=== PATIENT | male | born 1970 | race Caucasian/White ===

== ENCOUNTER 2017-05-19 18:20 | Inpatient (IN) | payer BC ==
--- NOTE | 2017-05-19 19:03 | ED ---
Extremity Problem HPI <Eldon Lunsford - Last Filed: 05/19/17 22:12> - General Source: patient Mode of arrival: ambulatory Limitations: no limitations <Danielle Moffett - Last Filed: 05/20/17 03:37> - General Chief complaint: Extremity Problem,Nontraumatic Stated complaint: Swollen leg Time Seen by Provider: 05/19/17 18:41 - History of Present Illness Initial comments: 46 year-old male patient presents to the emergency department today for complaints of right knee pain, redness, and swelling. Patient states that for the last month he has had bursitis to the right knee. States he has been seeking treatment with senior regulatory affairs specialist for this. States he did undergo MRI today that was scheduled a couple of weeks ago. Patient states that yesterday evening he felt a pop in his knee and felt a warm sensation run down his leg. Patient states since that time he has been having swelling and redness down into the lower leg and up into his thigh. Patient states he did feel chilled yesterday however denies any documented fevers. Denies any nausea or vomiting. Denies any numbness or tingling to the right lower extremity. Patient denies any recent rash, shortness breath, chest pain, abdominal pain, diarrhea, constipation, back pain, numbness, tingling, dizziness, weakness, hematuria, dysuria, urinary urgency, urinary frequency, headache, visual changes , or any other complaints. (Danielle Moffett) - Related Data Home Medications Medication Instructions Recorded Confirmed No Known Home Medications [No 10/06/15 05/19/17 Known Home Medications] Allergies Allergy/AdvReac Type Severity Reaction Status Date / Time No Known Allergies Allergy Verified 05/19/17 18:59 Review of Systems ROS Other: All systems not noted in ROS Statement are negative. <Eldon Lunsford - Last Filed: 05/19/17 22:12> ROS Other: All systems not noted in ROS Statement are negative. <Danielle Moffett - Last Filed: 05/20/17 03:37> ROS Statement: Those systems with pertinent positive or pertinent negative responses have been documented in the HPI. Past Medical History Past Medical History: No Reported History History of Any Multi-Drug Resistant Organisms: None Reported Past Surgical History: No Surgical Hx Reported Past Psychological History: No Psychological Hx Reported Smoking Status: Current every day smoker Past Alcohol Use History: None Reported Past Drug Use History: None Reported <Danielle Moffett - Last Filed: 05/20/17 03:37> General Exam Limitations: no limitations General appearance: alert, in no apparent distress, other (This is a well- developed, well-nourished adult male patient in no acute distress. Vital signs upon presentation are temperature 98.6F, pulse 108, respirations 20, blood pressure 140/76, pulse ox 98% on room air.) Eye exam: Present: normal appearance, PERRL, EOMI. Absent: scleral icterus, conjunctival injection, periorbital swelling ENT exam: Present: normal exam, normal oropharynx, mucous membranes moist Respiratory exam: Present: normal lung sounds bilaterally. Absent: respiratory distress, wheezes, rales, rhonchi, stridor Cardiovascular Exam: Present: normal rhythm, tachycardia, normal heart sounds. Absent: systolic murmur, diastolic murmur, rubs, gallop, clicks Extremities exam: Present: full ROM, tenderness (Tenderness over the right anterior knee), normal capillary refill, other (Swelling, tenderness, and erythema noted over the right anterior knee. Patient does have erythema extending down the right lower leg circumferentially to approximately mid to lower calf. Patient also has erythema extending up on the right lateral thigh. Skin is otherwise pink, warm, and dry. Cap refills less than 3 seconds. Pedal and posttibial pulses are 2+ and equal bilaterally.). Absent: normal inspection, pedal edema, joint swelling, calf tenderness Neurological exam: Present: alert, oriented X3, CN II-XII intact Psychiatric exam: Present: normal affect, normal mood Skin exam: Present: warm, dry, intact, normal color. Absent: rash <Danielle Moffett - Last Filed: 05/20/17 03:37> Course <Eldon Lunsford - Last Filed: 05/19/17 22:12> <Danielle Moffett - Last Filed: 05/20/17 03:37> Vital Signs 05/19/17 05/19/17 18:29 21:00 Temperature 98.6 F 100.4 F H Pulse Rate 108 H 114 H Respiratory 20 18 Rate Blood Pressure 140/76 142/63 O2 Sat by Pulse 98 96 Oximetry - Reevaluation(s) Reevaluation #1: 05/19/17 21:45 Sepsis diagnoses: 2145 (Danielle Moffett) Medical Decision Making - Lab Data Result diagrams: 05/19/17 18:50 05/19/17 18:50 <Eldon Lunsford - Last Filed: 05/19/17 22:12> - Lab Data Result diagrams: 05/19/17 18:50 05/19/17 18:50 - Radiology Data Radiology results: report reviewed, image reviewed <Danielle Moffett - Last Filed: 05/20/17 03:37> - Medical Decision Making Patient was reevaluated by myself, Dr. Lunsford. Patient does have evidence of cellulitis of the right leg from above the knee to above the ankle. There is warmth and mild tenderness. Patient has what but cell count elevation as well as meats Sirs criteria. Patient meet sepsis criteria. Patient has been started on IV antibiotics. Blood culture and lactic acid has been ordered. Patient was updated on results and plan. Case was discussed in detail with Dr. Stratton, who will admit his patient with consult with Dr. Bruce and infectious disease Dr. Snowden. (Eldon Lunsford) - Lab Data Lab Results 05/19/17 05/19/17 05/19/17 Range/Units 18:50 18:50 19:15 WBC 18.3 H (3.8-10.6) k/uL RBC 5.32 (4.30-5.90) m/uL Hgb 16.1 (13.0-17.5) gm/dL Hct 47.3 (39.0-53.0) % MCV 88.9 (80.0-100.0) fL MCH 30.3 (25.0-35.0) pg MCHC 34.1 (31.0-37.0) g/dL RDW 13.1 (11.5-15.5) % Plt Count 229 (150-450) k/uL Neutrophils % 75 % Lymphocytes % 14 % Monocytes % 7 % Eosinophils % 2 % Basophils % 0 % Neutrophils # 13.8 H (1.3-7.7) k/uL Lymphocytes # 2.6 (1.0-4.8) k/uL Monocytes # 1.2 H (0-1.0) k/uL Eosinophils # 0.4 (0-0.7) k/uL Basophils # 0.1 (0-0.2) k/uL Sodium 141 (137-145) mmol/L Potassium 4.6 (3.5-5.1) mmol/L Chloride 104 (98-107) mmol/L Carbon Dioxide 22 (22-30) mmol/L Anion Gap 15 mmol/L BUN 14 (9-20) mg/dL Creatinine 0.80 (0.66-1.25) mg/dL Est GFR (CKD-EPI)AfAm >90 (>60 ml/min/1.73 sqM) Est GFR (CKD-EPI)NonAf >90 (>60 ml/min/1.73 sqM) Glucose 119 H (74-99) mg/dL Plasma Lactic Acid Jimenez 1.3 (0.7-2.0) mmol/L Calcium 9.4 (8.4-10.2) mg/dL Total Bilirubin 0.6 (0.2-1.3) mg/dL AST 31 (17-59) U/L ALT 37 (21-72) U/L Alkaline Phosphatase 72 (38-126) U/L Total Protein 7.4 (6.3-8.2) g/dL Albumin 4.3 (3.5-5.0) g/dL - Radiology Data 3 views of the right knee were obtained. No fracture or dislocation evident. There is no sign of joint effusion. Joint spaces are fairly normal. There is soft tissue swelling inferior to the patella. Impression by Dr. Maradiaga shows soft tissue swelling. Normal joint spaces. No fracture. MRI of the right knee was obtained. Report was reviewed in its entirety. Impression by Dr. Maradiaga shows no evidence of meniscal or ligamentous tear. Mild knee joint effusion could relate to synovitis. Extensive subcutaneous edema around the knee with elongated fluid collection in the subcutaneous tissues anteriorly as above. This could relate to cellulitis and abscess. Clinical correlation is recommended. I will also consider chronic hematoma and seroma. (Danielle Moffett) Disposition <Eldon Lunsford - Last Filed: 05/19/17 22:12> Decision to Admit Reason: Admit from EC Decision Date: 05/19/17 Decision Time: 22:30 <Danielle Moffett - Last Filed: 05/20/17 03:37> Clinical Impression: Cellulitis of right knee, Effusion, right knee, Sepsis Disposition: ADMITTED IP TO THIS HOSP Condition: Good
[2017-05-19 19:04] LABS: Basophils # (A) 0.1 k/uL (0-0.2); Basophils % (A) 0 %; Eosinophils # (A) 0.4 k/uL (0-0.7); Eosinophils % (A) 2 %; HCT 47.3 % (39.0-53.0); HGB 16.1 gm/dL (13.0-17.5); Lymphocytes # (A) 2.6 k/uL (1.0-4.8); Lymphocytes % (A) 14 %; MCH 30.3 pg (25.0-35.0); MCHC 34.1 g/dL (31.0-37.0); MCV 88.9 fL (80.0-100.0); Mean Platelet Volume 8.4; Monocytes # (A) 1.2 k/uL (0-1.0); Monocytes % (A) 7 %; Neutrophils # (A) 13.8 k/uL (1.3-7.7); Neutrophils % (A) 75 %; Platelet Count 229 k/uL (150-450); RBC 5.32 m/uL (4.30-5.90); RDW 13.1 % (11.5-15.5); WBC 18.3 k/uL (3.8-10.6)
[2017-05-19 19:24] LABS: ALT 37 U/L (21-72); AST 31 U/L (17-59); Albumin 4.3 g/dL (3.5-5.0); Alkaline Phosphatase 72 U/L (38-126); Anion Gap 15 mmol/L; Blood Urea Nitrogen 14 mg/dL (9-20); Calcium 9.4 mg/dL (8.4-10.2); Carbon Dioxide 22 mmol/L (22-30); Chloride 104 mmol/L (98-107); Glucose 119 mg/dL (74-99); Potassium 4.6 mmol/L (3.5-5.1); Sodium 141 mmol/L (137-145); Total Bilirubin 0.6 mg/dL (0.2-1.3); Total Protein 7.4 g/dL (6.3-8.2)
[2017-05-19] MEDS ORDERED: VANCOMYCIN IV PER PHARMACY 1 EACH MISC MISCELLANE PRN (20:04)
[2017-05-19] MEDS ORDERED: VANCOMYCIN 1,500 MG in SODIUM CHLORIDE 0.9% 250 ML IVPB STA (20:13)
--- NOTE | 2017-05-19 20:28 | XR ---
EXAMINATION TYPE: XR knee complete RT DATE OF EXAM: 05/19/2017 COMPARISON: NONE HISTORY: Bursitis. Pain TECHNIQUE: 3 views FINDINGS: I see no fracture nor dislocation. There is no sign of joint effusion. Joint spaces are angela rly normal. There is soft tissue swelling inferior to the patella. IMPRESSION: Soft tissue swelling. Normal joint spaces. No fracture.
[2017-05-19] MEDS ORDERED: AMPICILLIN-SULBACTAM 3 GM in SODIUM CHLORIDE 0.9% 100 ML IVPB STA (21:44)
[2017-05-19] MEDS ORDERED: NALOXONE 0.4 MG/ML 1 ML VIAL IV PRN (22:19)
[2017-05-19] MEDS ORDERED: ACETAMINOPHEN TAB 325 MG TAB PO PRN (22:19)
[2017-05-19] MEDS: HYDROcodone/APAP 5-325MG 1 EACH TAB PO PRN (23:21)
[2017-05-19] MEDS: SODIUM CHLORIDE 0.9% 1,000 ML IV SCH (23:21)
[2017-05-19 23:36] VITALS: BMI 32.8
[2017-05-20] MEDS: NICOTINE 21MG/24HR PATCH TRANSDERM SCH ×2 (00:03→07:33)
[2017-05-20] MEDS: VANCOMYCIN 1,500 MG in SODIUM CHLORIDE 0.9% 250 ML IVPB SCH ×3 (01:40→18:41)
[2017-05-20] MEDS: AMPICILLIN-SULBACTAM 3 GM in SODIUM CHLORIDE 0.9% 100 ML IVPB SCH ×3 (05:54→17:32)
[2017-05-20] MEDS: HYDROcodone/APAP 5-325MG 1 EACH TAB PO PRN ×4 (06:25→21:09)
[2017-05-20] MEDS: SODIUM CHLORIDE 0.9% 1,000 ML IV SCH ×2 (07:33→21:10)
[2017-05-20 08:17] LABS: Basophils # (A) 0.1 k/uL (0-0.2); Basophils % (A) 0 %; Eosinophils # (A) 0.3 k/uL (0-0.7); Eosinophils % (A) 2 %; HCT 45.9 % (39.0-53.0); HGB 14.9 gm/dL (13.0-17.5); Lymphocytes % (A) 13 %; MCH 29.4 pg (25.0-35.0); MCHC 32.5 g/dL (31.0-37.0); MCV 90.4 fL (80.0-100.0); Mean Platelet Volume 8.2; Monocytes # (A) 1.1 k/uL (0-1.0); Monocytes % (A) 7 %; Neutrophils # (A) 11.5 k/uL (1.3-7.7); Neutrophils % (A) 76 %; Platelet Count 199 k/uL (150-450); RBC 5.08 m/uL (4.30-5.90); RDW 13.1 % (11.5-15.5); WBC 15.2 k/uL (3.8-10.6)
--- NOTE | 2017-05-20 11:43 | HP ---
HISTORY AND PHYSICAL CHIEF COMPLAINT: A 46-year-old white male with right knee pain, swelling and redness with possible osteomyelitis of the knee. HISTORY OF PRESENT ILLNESS: This is a 46-year-old white male admitted with osteomyelitis of the knee. Orthopedic specialists for this. Underwent an MRI today and was admitted due to increased redness, swelling, possible osteomyelitis of the knee. He had some chills at home. Denies any fevers. No nausea, vomiting. Awaiting Orthopedic consultation at this point. He is on IV antibiotics to treat a septic joint. He has no home medicines. ALLERGIES: Negative. REVIEW OF SYSTEMS: A 14-point review of systems negative except for as mentioned in HPI. FAMILY HISTORY: Negative. SOCIAL HISTORY: No alcohol. No illicit drugs. Current everyday smoker. PHYSICAL EXAM: A white male, well developed, well nourished, in no acute distress. Temp 98.6, pulse 108, respirations 20 to 25, blood pressure 140/76, O2 is 98% on room air. OPHTHALMOLOGIC: No scleral icterus. ENT: External ear canals within normal limits. Respiratory shows clear. CARDIAC: S1, S2, some mild tachycardia. No murmurs, rubs or gallops. Extremity shows tenderness over the right anterior knee, swelling, erythema of the right anterior knee and the right lateral thigh, some redness. Capillary refills are normal in the affected leg. NEUROLOGIC: Cranial nerves intact. PSYCH: Fair mood and affect. Temp T-max 100.4, pulse rate is 108 to 114, respiratory 18-20, blood pressure is 140s/60s to 70s. O2 96 to 98%. ASSESSMENT: 1. Sepsis, septic knee and joint. Continue with IV antibiotics. 2. Leukocytosis with white count 18.3 secondary to a septic joint. Await MRI of the knee and surgical evaluation by Orthopedic Surgery. He has systemic inflammatory response syndrome secondary to septic knee. Blood cultures, lactic acid have been ordered. Await for Infectious Disease as well as Orthopedic Surgeon to see the patient. MMODL / IJN: [id number] /
[2017-05-20] MEDS ORDERED: diphenhydrAMINE 50 MG/ML 1 ML VIAL IVP PRN (13:32)
[2017-05-20] MEDS: diphenhydrAMINE 25 MG CAP PO PRN (21:09)
--- NOTE | 2017-05-20 22:22 | CONS ---
CONSULTATION DATE OF SERVICE: 05/20/2017 REASON FOR CONSULTATION: Right lower extremity cellulitis. HISTORY OF PRESENT ILLNESS: The patient is a 46-year-old male who apparently was having a problem with swelling on the right anterior knee area. His symptoms have been going on for about 2 weeks now and apparently the patient has been evaluated by Orthopedics in the outpatient setting, who did order an MRI that was completed. However, the patient said that on the day of presentation to the hospital he thought something had popped internally, and subsequently he noticed that his leg was getting swollen, red and painful, both the lower leg as well as the upper thigh area. Pain is described to be throbbing, almost 7 to 8 out of 10, having no radiation. Patient did have some chills but denies any high-grade fever. With these symptoms the patient presented to the [facility] ER, where the patient has been evaluated by the ER physician. The patient did have a fever of 100.4 and elevated white count of 18.3. Blood cultures were obtained as well as x-rays of the right knee which show soft tissue swelling, normal joint spaces and no fracture. The report of the MRI that was completed the same day as an outpatient shows extensive subcutaneous edema around the knee with elongated fluid collection in the subcutaneous tissue anteriorly, 5.1 x 2 cm. The patient has been started on broad-spectrum antibiotic. Infectious Disease and Orthopedics were consulted for further evaluation. REVIEW OF SYSTEMS: CONSTITUTIONAL: Positive for weakness along with a fever and chills. EYES: No complaint. ENT: No complaint. RESPIRATORY: No complaint. CARDIOVASCULAR: No complaint. GENITOURINARY: No complaint. GASTROINTESTINAL: No complaint. MUSCULOSKELETAL: As per HPI. INTEGUMENTARY: As per HPI. PSYCHOLOGICAL: No complaint. ENDOCRINE: No complaint. NEUROLOGICAL: No complaint. PAST MEDICAL HISTORY: No major illnesses. PAST SURGICAL HISTORY: No major surgeries. SOCIAL HISTORY: The patient is currently an everyday smoker; smokes about a pack a day. Denies drinking or drug use. FAMILY HISTORY: No pertinent findings noticed. ALLERGIES: NO KNOWN DRUG ALLERGIES. CURRENT MEDICATION: 1. Tylenol. 2. Capac. 3. Unasyn 3 grams q.6 hours. 4. Benadryl. 5. Vancomycin, Pharmacy to dose. 6. Narcan. 7. Nicotine patch. PHYSICAL EXAMINATION: Blood pressure is 121/68 with a pulse of 102, temperature 97.5. T-max is 100.4. He is 94% on room air. General description is a middle-aged male lying in bed in no distress. HEENT examination shows no pallor or scleral icterus. Oral mucous membrane is dry. No pharyngeal erythema or thrush. NECK: Trachea is central. No thyromegaly. LUNGS: Unlabored breathing. Clear to auscultation anteriorly. No wheeze or crackle. HEART: S1, S2. Regular rate and rhythm. No added sound. ABDOMEN: Soft. No tenderness. No guarding or rigidity. EXTREMITIES: Right knee did have swelling with more redness to the leg and the thigh area. This is slightly warm to touch and tender. No skin breakdown. No drainage. Neurologically patient is awake, alert, oriented x3. Mood and affect normal. LABS: Hemoglobin is 14.9, white count 15.2. Admission white count was 18.3 with a BUN of 14, creatinine 0.80. Electrolytes have been normal. Liver enzymes are normal. Blood culture obtained, currently pending. DIAGNOSTIC IMPRESSION AND PLAN: Patient admitted to hospital with increasing pain, swelling, redness of the right lower extremity in a patient who does have chronic swelling to the right knee area with MRI completed in outpatient setting that showed a subcutaneous fluid collection, 5 x 1 cm, likely representing a prepatellar bursitis infected with secondary cellulitis. The likely organism we need to cover will be the Gram-positive skin delilah such as strep and Staphylococcus aureus in a patient who did have features of sepsis on presentation with a fever of 100.4, tachycardia and elevated white count of 18,000. PLAN: 1. Patient will be treated with a broad-spectrum antibiotics in the form of Unasyn 3 grams q.6 and vancomycin, Pharmacy to dose, target of 15, while watching his kidney function very closely. 2. Await orthopedic evaluation for possible bursectomy and deep cultures. This should guide further antibiotic therapy and also determine his discharge antibiotic. 3. Janusz the area of the redness on the leg. 4. We will follow up on the clinical condition and culture to further adjust medication if needed. Thank you for this consultation. Will follow this patient along with you. MMODL / IJN: [id number] /
[2017-05-21] MEDS: AMPICILLIN-SULBACTAM 3 GM in SODIUM CHLORIDE 0.9% 100 ML IVPB SCH ×5 (00:53→23:45)
[2017-05-21] MEDS: VANCOMYCIN 1,500 MG in SODIUM CHLORIDE 0.9% 250 ML IVPB SCH ×2 (04:00→09:29)
[2017-05-21] MEDS: SODIUM CHLORIDE 0.9% 1,000 ML IV SCH ×2 (06:21→15:05)
[2017-05-21] MEDS ORDERED: VANCOMYCIN TROUGH DUE 1 EACH MISC MISCELLANE ONE (09:00)
[2017-05-21] MEDS: NICOTINE 21MG/24HR PATCH TRANSDERM SCH (09:29)
[2017-05-21 09:44] LABS: Basophils % (A) 0 %; Eosinophils # (A) 0.3 k/uL (0-0.7); Eosinophils % (A) 2 %; HGB 15.8 gm/dL (13.0-17.5); Lymphocytes # (A) 1.8 k/uL (1.0-4.8); Lymphocytes % (A) 13 %; MCH 31.6 pg (25.0-35.0); MCV 90.2 fL (80.0-100.0); Mean Platelet Volume 7.5; Monocytes # (A) 0.7 k/uL (0-1.0); Monocytes % (A) 5 %; Neutrophils # (A) 10.6 k/uL (1.3-7.7); Neutrophils % (A) 78 %; Platelet Count 212 k/uL (150-450); RBC 4.99 m/uL (4.30-5.90); RDW 12.9 % (11.5-15.5); WBC 13.7 k/uL (3.8-10.6)
[2017-05-21 09:54] LABS: ALT 33 U/L (21-72); AST 20 U/L (17-59); Albumin 3.6 g/dL (3.5-5.0); Alkaline Phosphatase 64 U/L (38-126); Anion Gap 10 mmol/L; Blood Urea Nitrogen 10 mg/dL (9-20); Calcium 9.1 mg/dL (8.4-10.2); Carbon Dioxide 26 mmol/L (22-30); Chloride 104 mmol/L (98-107); Glucose 173 mg/dL (74-99); Potassium 4.4 mmol/L (3.5-5.1); Sodium 140 mmol/L (137-145); Total Bilirubin 0.5 mg/dL (0.2-1.3); Total Protein 6.2 g/dL (6.3-8.2)
[2017-05-21] MEDS: HYDROcodone/APAP 5-325MG 1 EACH TAB PO PRN ×2 (10:02→20:23)
[2017-05-21] MEDS: diphenhydrAMINE 25 MG CAP PO PRN ×2 (10:02→20:23)
[2017-05-21] MEDS: VANCOMYCIN 1,750 MG in SODIUM CHLORIDE 0.9% 250 ML IVPB SCH (15:30)
--- NOTE | 2017-05-21 21:35 | PN ---
PROGRESS NOTE SUBJECTIVE: 46-year-old white male with cellulitis sepsis of the right knee bursitis infection. He has redness down to his foot. Continues on vancomycin and Zosyn. Awaiting Infectious Disease and Orthopedic consult. Vital signs stable. Afebrile. Cardiovascular S1-S2. Lungs clear. GI: Soft. Extremities show swelling prepatellar bursa 1 x 2 cm x 1 cm in the right inferior patella. Lower leg redness and warmth all the way down to the foot covering the whole anterior tibia. IMPRESSION: 1. Cellulitis, sepsis criteria. 2. Tachycardia. 3. High white count and fever on admission. 4. Right knee bursitis. Continue broad-spectrum antibiotics, vancomycin, Zosyn. Await orthopedic recommendation. MMODL / IJN: [id number] /
--- NOTE | 2017-05-21 23:56 | PN ---
PROGRESS NOTE DATE OF SERVICE: 05/21/2017. REASON FOR FOLLOW UP: Right knee prepatellar bursitis with right leg cellulitis. INTERVAL HISTORY: The patient is afebrile. He has been breathing comfortably. The patient denies having any chest pain. No shortness of breath or cough. No leg pain, swelling. Redness slightly improved. EXAMINATION: Blood pressure 135/65 with a pulse of 99, temperature of 99.1. He is 96% on room air. General description is a middle-aged male lying in bed in no distress. RESPIRATORY SYSTEM: Unlabored breathing. Clear to auscultation anteriorly. HEART: S1, S2. Regular rate and rhythm. ABDOMEN: Soft. No tenderness. Right leg swelling is slightly decreased. LABS: White count of 13.7. BUN of 10, creatinine 0.78. Blood culture negative so far. DIAGNOSTIC IMPRESSION AND PLAN: Patient with right leg cellulitis in a patient who did have a component of prepatellar bursitis. Waiting for the ortho evaluation for surgical I and D and deep culture. Will keep the patient on the Unasyn and vancomycin while waiting for the culture to finalize. Continue supportive care. MMODL / IJN: [id number] / MTDD
[2017-05-22] MEDS: VANCOMYCIN 1,750 MG in SODIUM CHLORIDE 0.9% 250 ML IVPB SCH ×3 (00:58→17:03)
[2017-05-22] MEDS: SODIUM CHLORIDE 0.9% 1,000 ML IV SCH ×3 (01:43→21:57)
[2017-05-22] MEDS: AMPICILLIN-SULBACTAM 3 GM in SODIUM CHLORIDE 0.9% 100 ML IVPB SCH ×4 (06:15→23:22)
[2017-05-22] MEDS: NICOTINE 21MG/24HR PATCH TRANSDERM SCH (07:59)
[2017-05-22 08:27] LABS: Anion Gap 13 mmol/L; Blood Urea Nitrogen 13 mg/dL (9-20); Calcium 9.4 mg/dL (8.4-10.2); Carbon Dioxide 25 mmol/L (22-30); Chloride 103 mmol/L (98-107); Glucose 110 mg/dL (74-99); Potassium 4.7 mmol/L (3.5-5.1); Sodium 141 mmol/L (137-145)
[2017-05-22 10:55] LABS: Basophils % (A) 0 %; Eosinophils # (A) 0.3 k/uL (0-0.7); Eosinophils % (A) 3 %; HCT 48.2 % (39.0-53.0); Lymphocytes # (A) 1.8 k/uL (1.0-4.8); Lymphocytes % (A) 15 %; MCH 29.9 pg (25.0-35.0); MCHC 33.2 g/dL (31.0-37.0); MCV 90.3 fL (80.0-100.0); Mean Platelet Volume 8.6; Monocytes # (A) 0.7 k/uL (0-1.0); Monocytes % (A) 6 %; Neutrophils # (A) 9.2 k/uL (1.3-7.7); Neutrophils % (A) 74 %; Platelet Count 229 k/uL (150-450); RBC 5.34 m/uL (4.30-5.90); RDW 12.8 % (11.5-15.5); WBC 12.4 k/uL (3.8-10.6)
[2017-05-22] MEDS: diphenhydrAMINE 25 MG CAP PO PRN (11:13)
--- NOTE | 2017-05-22 11:50 | P.CNOR ---
History of Present Illness - [facility] Consult date: 05/22/17 Requesting physician: Eben Stratton Consult reason: joint pain (Right knee swelling and cellulitis) History of present illness: 46-year-old patient who presented to emergency room with right knee and leg area pain and erythema. He reports swelling anteriorly for a few days prior to this. He apparently went down and felt a pop in the anterior aspect of the knee and had subsequent progressive erythema. He was admitted on 05/19/17 and placed on IV antibiotics. He reports improvement of his cellulitis but he still has swelling anteriorly and pain there that hasn't significantly improved since admission. He denies other current joint complaints. Review of Systems Constitutional: Reports as per [facility] Past Medical History Past Medical History: No Reported History Additional Past Medical History / Comment(s): Broken fifth metacarpal, no surgery, bursitis to right knee since April 2017. History of Any Multi-Drug Resistant Organisms: None Reported Past Surgical History: No Surgical Hx Reported Past Anesthesia/Blood Transfusion Reactions: No Reported Reaction Past Psychological History: No Psychological Hx Reported Smoking Status: Current every day smoker Past Alcohol Use History: None Reported Past Drug Use History: None Reported Medications and Allergies Home Medications Medication Instructions Recorded Confirmed Type No Known Home Medications [No 10/06/15 05/19/17 History Known Home Medications] Allergies Allergy/AdvReac Type Severity Reaction Status Date / Time No Known Allergies Allergy Verified 05/19/17 18:59 Physical Examination Osteopathic Statement: *. No significant issues noted on an osteopathic structural exam other than those noted in the History and Physical/Consult. There is an area of swelling and fluctuance in the area of the prepatellar bursa. It is somewhat tender to palpation. There is diffuse erythema lateral to that extending into the lateral calf area. He has full range of motion of the right knee with no pain. There is no palpable intra-articular effusion present. Painless logrolling of the hip is present. Ligaments about the right knee appears stable. He doesn't have any obvious tenderness along the joint line areas. He is able to move his ankle with no pain. He is able to move his toes with no pain. Homans and Zelalem are both negative. His distal neurovascular exam is intact. Results - Labs Labs: Abnormal Lab Results - Last 24 Hours (Table) 05/22/17 05/22/17 Range/Units 07:21 07:21 WBC 12.4 H (3.8-10.6) k/uL Neutrophils # 9.2 H (1.3-7.7) k/uL Glucose 110 H (74-99) mg/dL Microbiology - Last 24 Hours (Table) 05/19/17 18:50 Blood Culture - Preliminary Blood No Growth after 48 hours H & H 05/19/17 05/20/17 05/21/17 Range/Units 18:50 07:41 09:32 Hgb 16.1 14.9 15.8 (13.0-17.5) gm/dL Hct 47.3 45.9 45.0 (39.0-53.0) % 05/22/17 Range/Units 07:21 Hgb 16.0 (13.0-17.5) gm/dL Hct 48.2 (39.0-53.0) % Result Diagrams: 05/22/17 07:21 05/22/17 07:21 - Diagnostic results Knee x-ray: report reviewed, image reviewed (Mild soft tissue swelling anteriorly. No osseous abnormalities present.) Knee MRI: report reviewed (Anterior subcutaneous edema, no meniscal tear, very mild joint effusion) Assessment and Plan Assessment: Right knee infected the patellar bursa with lower extremity cellulitis Plan: 1. Continue current IV antibiotic therapy as per infectious disease 2. Will proceed with incision, debridement and bursectomy right knee tomorrow 3. Appropriate medical management Time with Patient: Less than 30
--- NOTE | 2017-05-22 20:59 | PN ---
PROGRESS NOTE DATE OF SERVICE: 05/22/2017. REASON FOR FOLLOWUP: Right knee prepatellar bursitis with secondary cellulitis. INTERVAL HISTORY: The patient is afebrile. He is breathing comfortably. Denies having any chest pain, shortness of breath. No cough. No abdominal pain. Overall pain, swelling and redness to leg has slightly decreased. PHYSICAL EXAMINATION: blood pressure 135/83, pulse 103, temperature 99. He is 95% on room air. General description is a middle-aged male lying in bed in no distress. Respiratory system: Unlabored breathing, clear to auscultation anteriorly. Heart S1, S2. Regular rate. Abdomen soft, no tenderness. Right knee with some swelling, but the right leg redness is improved. LABS: Hemoglobin 16, white count 12.4. Blood culture negative. DIAGNOSTIC IMPRESSION AND PLAN: Patient with right lower extremity cellulitis with right knee prepatellar bursitis. Waiting for surgical debridement and deep cultures. Keep the patient on vanco and Unasyn. Antibiotic will be adjusted further on the basis of the cultures. Continue supportive care. MMODL / IJN: [id number] / NI
--- NOTE | 2017-05-22 21:06 | PN ---
PROGRESS NOTE SUBJECTIVE: This is a 46-year-old white male with cellulitis and septic bursitis, sepsis due to right leg cellulitis and septic bursitis. Surgery is planned for tomorrow per orthopedics. Cardiovascular S1-S2. Lungs clear. GI Soft. Hematology negative Homans. ASSESSMENT: 1. Septic bursitis. 2. Cellulitis of the right lower leg. 3. Sepsis. Continue current treatment and continue vancomycin, Unasyn. MMODL / IJN: [id number] /
[2017-05-23] MEDS: VANCOMYCIN 1,750 MG in SODIUM CHLORIDE 0.9% 250 ML IVPB SCH ×3 (00:53→17:11)
[2017-05-23] MEDS: AMPICILLIN-SULBACTAM 3 GM in SODIUM CHLORIDE 0.9% 100 ML IVPB SCH ×4 (05:35→23:35)
[2017-05-23] MEDS ORDERED: VANCOMYCIN TROUGH DUE 1 EACH MISC MISCELLANE ONE (07:00)
[2017-05-23] MEDS: NICOTINE 21MG/24HR PATCH TRANSDERM SCH (07:55)
[2017-05-23] MEDS: SODIUM CHLORIDE 0.9% 1,000 ML IV SCH ×2 (08:20→17:13)
[2017-05-23 10:05] LABS: Anion Gap 16 mmol/L; Blood Urea Nitrogen 15 mg/dL (9-20); Calcium 9.6 mg/dL (8.4-10.2); Carbon Dioxide 26 mmol/L (22-30); Chloride 103 mmol/L (98-107); Glucose 103 mg/dL (74-99); Potassium 4.7 mmol/L (3.5-5.1); Sodium 145 mmol/L (137-145)
[2017-05-23] MEDS ORDERED: IV FLUID CONTINUATION 1,000 ML IV ONE (13:17)
[2017-05-23] MEDS ORDERED: MIDAZOLAM 2 MG/2 ML VIAL ONE (15:16)
[2017-05-23] MEDS ORDERED: fentaNYL (PF) 50 MCG/ML 2 ML AMP ONE (15:16)
[2017-05-23] MEDS ORDERED: LIDOCAINE 1% INJ 10MG/ML (20 ML MDV) ONE (15:16)
[2017-05-23] MEDS ORDERED: PHENYLEPHRINE-0.9% NACL SYG 1 MG/10 ML SYRINGE ONE (15:16)
[2017-05-23] MEDS ORDERED: SUCCINYLCHOLINE CHLORIDE 100 MG/5 ML SYR IV ONE (15:16)
[2017-05-23] MEDS ORDERED: PROPOFOL 10 MG/ML 20 ML VIAL IV ONE (15:16)
[2017-05-23] MEDS ORDERED: LACTATED RINGERS 1,000 ML IV ONE (15:26)
[2017-05-23] MEDS ORDERED: ceFAZolin 3,000 MG in SODIUM CHLORIDE 0.9% IRRIGATIO 3,000 ML IRRIGATION ONE (15:30)
[2017-05-23] MEDS ORDERED: BUPIVACAINE (PF) 0.25% 30 ML VIAL SQ ONE (16:03)
--- NOTE | 2017-05-23 16:22 | P.OP ---
Date of Procedure: 05/23/17 Preoperative Diagnosis: Right knee septic prepatellar bursitis Postoperative Diagnosis: Same Procedure(s) Performed: 1. Right knee open prepatellar bursectomy 2. Right knee incision with irrigation prepatellar bursa Implants: none Anesthesia: NELIA local Surgeon: Bennett Mcdaniels [employer] Operator #1: Titi Acosta Estimated Blood Loss (ml): 15 Pathology: none sent Condition: stable Disposition: PACU Indications for Procedure: 46-year-old patient seen with a infected/septic right knee patella prepatellar bursa. I recommended incision with irrigation and bursectomy. Patient was agreeable and consent was obtained. Operative Findings: see description of procedure Description of Procedure: Patient was taken to the operative wait. The patient underwent a general anesthetic by the department of anesthesia. A well-padded tourniquet was placed proximal right lower extremity. Right lower extremity was prepped and draped in the normal sterile orthopedic fashion. The tourniquet was elevated to 300. I made an incision over the area of the prepatellar bursa. We dissected down to the bursa. We mainly encountered a significant amount of purulent material. Cultures were obtained of this. We then at this point excised the prepatellar bursa which is obviously thickened, inflamed and irritated. We now irrigated the wound copiously with 3000 mL of antibiotic irrigant. The subcu soft tissues were now approximated with 2-0 Vicryl. We inserted a drain. The skin was sewn over the drain with 3-0 nylon. We have we infiltrated the area with proximal and 25 mL quarter percent plain Marcaine. We applied sterile dressings followed by loose web bone Hardy bandage. The tourniquet was released and immediate capillary refill the entire extremity noted. The patient was awakened, transferred to recovery stable condition.
[2017-05-23] MEDS: HYDROcodone/APAP 5-325MG 1 EACH TAB PO PRN ×2 (18:52→23:26)
[2017-05-23] MEDS: diphenhydrAMINE 25 MG CAP PO PRN (22:26)
--- NOTE | 2017-05-23 23:01 | PN ---
PROGRESS NOTE DATE OF SERVICE: 05/23/2017. REASON FOR FOLLOWUP: Right knee prepatellar bursitis with cellulitis. INTERVAL HISTORY: The patient is afebrile. Scheduled for the right knee prepatellar bursitis. The patient denies having any chest pain, shortness of breath or cough. No abdominal pain. No pain of the right knee leg area. EXAMINATION: Blood pressure is 119/70 with a pulse of 90, temperature 97.5, he is 95% on 2 L nasal cannula. General description is a middle-aged male lying in bed in no distress. Respiratory system: Unlabored breathing, clear to auscultation anteriorly. Heart S1, S2. Regular rate and rhythm. Abdomen soft, no tenderness. Right leg swelling and redness slightly decreased. No drainage. LABS: BUN of 19, creatinine 0.90. Vancomycin trough is 17.4. DIAGNOSTIC IMPRESSION AND PLAN: Patient with right knee prepatellar bursitis with secondary cellulitis for bursectomy today as well as deep culture that should guide the discharge antibiotic therapy. Keep the patient on vanco at this point. Continue supportive care. MMODL / IJN: [id number] / NI
--- NOTE | 2017-05-23 23:07 | PN ---
PROGRESS NOTE SUBJECTIVE: 46-year-old white male with cellulitis of right leg. Patellar bursitis of right leg, down having surgery the other day. Possibly discharge home on oral antibiotics when cleared by Surgery and Infectious Disease. MMODL / IJN: [id number] /
[2017-05-24] MEDS: VANCOMYCIN 1,750 MG in SODIUM CHLORIDE 0.9% 250 ML IVPB SCH ×3 (00:26→17:19)
[2017-05-24] MEDS: SODIUM CHLORIDE 0.9% 1,000 ML IV SCH ×2 (03:55→11:29)
[2017-05-24] MEDS: AMPICILLIN-SULBACTAM 3 GM in SODIUM CHLORIDE 0.9% 100 ML IVPB SCH ×3 (06:17→20:14)
[2017-05-24] MEDS: HYDROcodone/APAP 5-325MG 1 EACH TAB PO PRN ×3 (06:30→17:20)
[2017-05-24] MEDS: NICOTINE 21MG/24HR PATCH TRANSDERM SCH (07:52)
[2017-05-24 08:32] LABS: Anion Gap 13 mmol/L; Blood Urea Nitrogen 16 mg/dL (9-20); Carbon Dioxide 25 mmol/L (22-30); Chloride 104 mmol/L (98-107); Glucose 92 mg/dL (74-99); Potassium 4.5 mmol/L (3.5-5.1); Sodium 142 mmol/L (137-145)
[2017-05-24] MEDS: diphenhydrAMINE 25 MG CAP PO PRN ×2 (11:35→17:19)
--- NOTE | 2017-05-24 13:09 | P.PN ---
Subjective Progress Note Date: 05/24/17 Principal diagnosis: Status post incision and drainage of septic right prepatellar bursa Patient is seen today resting in his hospital bed, he appears comfortable. He notes no acute pain involving the right knee. He denies any fevers or chills. He denies any episodes of vomiting or nausea since surgery. Objective - Vital Signs Vital signs: Vital Signs Temp 98.3 F 05/24/17 07:00 Pulse 83 05/24/17 07:00 Resp 18 05/24/17 07:00 BP 116/55 05/24/17 07:00 Pulse Ox 97 05/24/17 07:00 Intake & Output 05/23/17 05/24/17 05/24/17 18:59 06:59 18:59 Intake Total 1301 1100 Output Total 15 Balance 1286 1100 Intake: IV 1301 Oral 1100 Output: Estimated Blood Loss 15 Other: Voiding Method Toilet # Voids 3 1 - Exam Right lower extremity: Initial postop bandage is in good position along with Hardy bandage There is minimal soft tissue swelling noted in the ankle. Plantar flexion, dorsiflexion, EHL, FHL are intact. Dorsal pedis pulses 2+, sensory exam to light touch throughout the extremities intact - Labs CBC & Chem 7: 05/22/17 07:21 05/24/17 07:13 Labs: Microbiology - Last 24 Hours (Table) 05/23/17 15:47 Gram Stain - Preliminary Knee - Right Wound Culture - Preliminary 05/23/17 15:47 Gram Stain - Preliminary Knee - Right Wound Culture - Preliminary 05/23/17 15:47 Anaerobic Culture - Preliminary Knee - Right 05/23/17 15:47 Anaerobic Culture - Preliminary Knee - Right 05/19/17 18:50 Blood Culture - Preliminary Blood No Growth after 96 hours Assessment and Plan Plan: Assessment: 1. Postop day #2 status post I&D right septic knee prepatellar bursa Plan: Continue symptomatically treatment, pain control utilizing oh medication I will remove the postop bandage and drain on postoperative day 2, leave intact at this time Ice and elevate often Recommendations per infectious disease and internal medicine Awaiting culture and sensitivity results for outpatient antibiotic choice We'll continue to follow during inpatient stay Time with Patient: Less than 30
[2017-05-24] MEDS: HEPARIN SODIUM,PORCINE 5,000 UNIT/ML 1 ML VIAL SQ SCH (20:28)
[2017-05-24] MEDS ORDERED: HYDROcodone/APAP 5-325MG 1 EACH TAB ONE (22:45)
--- NOTE | 2017-05-25 03:12 | PN ---
PROGRESS NOTE DATE OF SERVICE: 05/24/2017. REASON FOR FOLLOWUP: Right knee prepatellar bursitis with right leg cellulitis. INTERVAL HISTORY: The patient is afebrile. He has been breathing comfortably. Denies having any chest pain, shortness of breath, cough, abdominal pain, or any diarrhea. EXAMINATION: Blood pressure 154/86 with a pulse of 90, temperature 98.7. He is 96% on room air. General description is a middle-aged male lying in bed in no distress. Respiratory system: Unlabored breathing. Clear to auscultation anteriorly. Heart S1, S2. Regular rate and rhythm. Abdomen soft, no tenderness. Right leg swelling and redness has improved. DIAGNOSTIC IMPRESSION AND PLAN: Patient with right knee prepatellar bursitis with secondary cellulitis of the right leg, status post bursectomy. Culture so far negative. Antibiotic to continue in the form of vancomycin and Unasyn adjusting for the results of culture report. Continue supportive care. MMODL / IJN: [id number] /
[2017-05-25] MEDS: AMPICILLIN-SULBACTAM 3 GM in SODIUM CHLORIDE 0.9% 100 ML IVPB SCH ×4 (06:59→19:58)
[2017-05-25] MEDS: VANCOMYCIN 1,750 MG in SODIUM CHLORIDE 0.9% 250 ML IVPB SCH ×4 (07:44→23:34)
[2017-05-25] MEDS: HEPARIN SODIUM,PORCINE 5,000 UNIT/ML 1 ML VIAL SQ SCH ×2 (08:05→23:33)
[2017-05-25] MEDS: NICOTINE 21MG/24HR PATCH TRANSDERM SCH (08:05)
[2017-05-25] MEDS: SODIUM CHLORIDE 0.9% 1,000 ML IV SCH ×3 (08:05→17:44)
[2017-05-25 09:25] LABS: Anion Gap 12 mmol/L; Blood Urea Nitrogen 14 mg/dL (9-20); Calcium 9.3 mg/dL (8.4-10.2); Carbon Dioxide 29 mmol/L (22-30); Chloride 103 mmol/L (98-107); Glucose 96 mg/dL (74-99); Potassium 4.8 mmol/L (3.5-5.1); Sodium 144 mmol/L (137-145)
--- NOTE | 2017-05-25 09:51 | PN ---
PROGRESS NOTE DATE OF SERVICE: 05/24/2017 SUBJECTIVE: This 46-year-old white male with cellulitis, sepsis, status post right leg bursitis removal. Remains on broad-spectrum IV antibiotics. Awaiting culture reports for long- term oral antibiotics or IV antibiotics for him to go home. Integument shows his leg is much improved with decreased swelling and redness. CARDIOVASCULAR: S1, S2. LUNGS: Clear. GI: Soft. PLAN: Patient possibly will be discharged home in next 24 to 48 hours pending culture reports and antibiotics given. MMODL / IJN: [id number] /
[2017-05-25] MEDS: HYDROcodone/APAP 5-325MG 1 EACH TAB PO PRN ×2 (11:02→20:02)
--- NOTE | 2017-05-25 11:33 | PN ---
PROGRESS NOTE DATE OF SERVICE: 05/25/2017 REASON FOR FOLLOWUP: Right knee prepatellar bursitis with secondary cellulitis. INTERVAL HISTORY: The patient is afebrile. He is currently breathing comfortably. Patient denies having any chest pain. No shortness of breath or cough. No abdominal pain or any worsening pain in the right leg area. PHYSICAL EXAMINATION: On examination, blood pressure 123/57, pulse of 79, temperature 97.6. He is 98% on room air. General description is a middle-aged male lying in bed in no distress. RESPIRATORY SYSTEM: Unlabored breathing, clear to auscultation anteriorly. HEART: S1, S2. Regular rate and rhythm. ABDOMEN: Soft. No tenderness. Right leg swelling has improved. Knee still dressed. No drainage was noticed. LABS: Creatinine 0.90. The culture so far pending. DIAGNOSTIC IMPRESSION AND PLAN: Patient with right knee prepatellar bursitis with secondary cellulitis of the leg, status post drainage. We are waiting for the culture to finalize to determine his discharge antibiotics. Continue with supportive care. MMODL / IJN: [id number] /
--- NOTE | 2017-05-25 11:48 | P.PN ---
Subjective Progress Note Date: 05/25/17 Principal diagnosis: Status post incision and drainage of septic right prepatellar bursa Patient is seen today resting in his hospital bed, he appears comfortable. He notes no acute pain involving the right knee. He denies any fevers or chills. He denies any episodes of vomiting or nausea since surgery. Objective - Vital Signs Vital signs: Vital Signs Temp 97.6 F 05/25/17 05:50 Pulse 79 05/25/17 05:50 Resp 16 05/25/17 05:50 BP 123/57 05/25/17 05:50 Pulse Ox 98 05/25/17 05:50 Intake & Output 05/24/17 05/25/17 05/25/17 18:59 06:59 18:59 Other: Voiding Method Toilet # Voids 2 1 # Bowel Movements 0 - Exam Right lower extremity: Postoperative bandage was removed, [place] drain was removed. No active drainage visualized. No significant areas of erythema or fluctuance present. There is minimal soft tissue swelling noted in the ankle. Plantar flexion, dorsiflexion, EHL, FHL are intact. Dorsal pedis pulses 2+, sensory exam to light touch throughout the extremities intact - Labs CBC & Chem 7: 05/22/17 07:21 05/25/17 07:52 Labs: Microbiology - Last 24 Hours (Table) 05/19/17 18:50 Blood Culture - Preliminary Blood No Growth after 120 hours 05/23/17 15:47 Gram Stain - Preliminary Knee - Right Wound Culture - Preliminary 05/23/17 15:47 Gram Stain - Preliminary Knee - Right Wound Culture - Preliminary Assessment and Plan Plan: Assessment: 1. Postop day #2 status post I&D right septic knee prepatellar bursa Plan: Continue symptomatically treatment, pain control utilizing oh medication Daily dressing changes/ice and elevate Recommendations per infectious disease and internal medicine Awaiting culture and sensitivity results for outpatient antibiotic choice We'll continue to follow during inpatient stay Time with Patient: Less than 30
--- NOTE | 2017-05-25 23:06 | PN ---
PROGRESS NOTE SUBJECTIVE: This is a 46-year-old white male with cellulitis, sepsis, cellulitis of the right leg, status post bursa surgery awaiting Infectious Disease. They recommend long-term IV antibiotics. CARDIOVASCULAR: S1, S2. LUNGS: Clear. GI: Soft. HEMATOLOGY: Negative Homans. ASSESSMENT: Cellulitis and sepsis of the right leg, infected bursa of the right knee. Continue with IV antibiotics. Switch to oral antibiotics. Continue PT and OT. MMODL / IJN: [id number] /
[2017-05-25 23:25] VITALS: RESP 18
[2017-05-26] MEDS: AMPICILLIN-SULBACTAM 3 GM in SODIUM CHLORIDE 0.9% 100 ML IVPB SCH ×3 (02:37→11:56)
[2017-05-26] MEDS: HYDROcodone/APAP 5-325MG 1 EACH TAB PO PRN (05:24)
[2017-05-26] MEDS: SODIUM CHLORIDE 0.9% 1,000 ML IV SCH (05:29)
[2017-05-26 06:08] VITALS: BP 120/67; PULSE 103; TEMP 98.6
[2017-05-26] MEDS: VANCOMYCIN 1,750 MG in SODIUM CHLORIDE 0.9% 250 ML IVPB SCH (08:39)
[2017-05-26] MEDS: HEPARIN SODIUM,PORCINE 5,000 UNIT/ML 1 ML VIAL SQ SCH (08:39)
[2017-05-26] MEDS: NICOTINE 21MG/24HR PATCH TRANSDERM SCH (08:39)
--- NOTE | 2017-05-26 10:46 | P.PN ---
Subjective Progress Note Date: 05/26/17 Principal diagnosis: Status post incision and drainage of septic right prepatellar bursa Patient is seen today resting in his hospital bed, he appears comfortable. He notes no acute pain involving the right knee. He denies any fevers or chills. He denies any episodes of vomiting or nausea since surgery. Objective - Vital Signs Vital signs: Vital Signs Temp 98.6 F 05/26/17 06:07 Pulse 103 H 05/26/17 06:07 Resp 18 05/26/17 06:07 BP 120/67 05/26/17 06:07 Pulse Ox 95 05/26/17 06:07 Intake & Output 05/25/17 05/26/17 05/26/17 18:59 06:59 18:59 Intake Total 240 200 Balance 240 200 Weight 98 kg Intake: Oral 240 200 Other: # Voids 2 2 # Bowel Movements 0 0 - Exam Right lower extremity: No active drainage visualized. No significant areas of erythema or fluctuance present. There is minimal soft tissue swelling noted in the ankle. Plantar flexion, dorsiflexion, EHL, FHL are intact. Dorsal pedis pulses 2+, sensory exam to light touch throughout the extremities intact - Labs CBC & Chem 7: 05/22/17 07:21 05/25/17 07:52 Labs: Microbiology - Last 24 Hours (Table) 05/23/17 15:47 Anaerobic Culture - Preliminary Knee - Right 05/23/17 15:47 Anaerobic Culture - Preliminary Knee - Right 05/19/17 18:50 Blood Culture - Final Blood No Growth after 144 hours 05/23/17 15:47 Gram Stain - Final Knee - Right Wound Culture - Final 05/23/17 15:47 Gram Stain - Final Knee - Right Wound Culture - Final Assessment and Plan Plan: Assessment: 1. Postop day #3 status post I&D right septic knee prepatellar bursa Plan: Continue symptomatically treatment, pain control utilizing oh medication Daily dressing changes/ice and elevate Recommendations per infectious disease and internal medicine Culture showing no growth after 48 hours Patient stable for discharge via the orthopedic standpoint Time with Patient: Less than 30
--- NOTE | 2017-05-26 15:16 | PN ---
PROGRESS NOTE DATE OF SERVICE: 05/26/2017 REASON FOR FOLLOWUP: Right knee prepatellar bursitis with secondary cellulitis of the leg. INTERVAL HISTORY: The patient is afebrile. He is currently breathing comfortably. Denies having any chest pain, shortness of breath: No cough, no abdominal pain. Denies any worsening pain in the right leg area. Overall improvement, the redness has resolved. No drainage from any area. PHYSICAL EXAMINATION: Blood pressure 120/67 with a pulse of 99, temperature 98.6. He is 95% on room air. General description is a middle-aged male, lying in bed in no distress. RESPIRATORY SYSTEM: Unlabored breathing, clear to auscultation anteriorly. HEART: S1, S2. Regular rate and rhythm. ABDOMEN: Soft, no tenderness. Right knee incision site with minimal erythema. No drainage. Right leg redness has resolved. LABS: BUN of 14, creatinine 0.90. Cultures done in the OR on 05/23 remain to be negative. Blood culture has been negative. DIAGNOSTIC IMPRESSION AND PLAN: Patient with right knee prepatellar bursitis with secondary cellulitis could be more likely from a gram-positive skin delilah such as strep, less likely methicillin-resistant Staphylococcus aureus, but not entirely excluded. Patient has shown overall clinical improvement. Antibiotic will be switched over to Keflex and doxycycline combination for 10 days. Scripts were sent to the pharmacy with outpatient follow up. All his questions were answered. MMODL / IJN: [id number] /
--- NOTE | 2017-06-19 05:01 | DS ---
DISCHARGE SUMMARY ADMITTED: 05/19/2017. DISCHARGE: 05/26/2017 DISCHARGE MEDICATIONS: Keflex 500 q.6 hours and doxycycline 100 mg q.12 hours. CONDITION: Stable. PROGNOSIS: Guarded. Ambulate as tolerated. HOSPITAL COURSE OF EVENTS: This is a white male who was admitted to the hospital with right knee prepatellar bursitis secondary cellulitis. Surgical operation was performed by Orthopedic Surgery. IV antibiotics were given for multiple days as the extended right lower leg was extremely red and cellulitic. Patient will was finalized on the 2 antibiotics as mentioned above for discharge, to follow up as outpatient. MMODL / IJN: [id number] /
--- NOTE | 2017-06-22 16:00 | CDI ---
Last Revision, January 2017 Documentation Clarification Form Date: 06/22/17 From: DONNELL Siddiqui Phone: If you have question, contact Obdulia Robertson Re Etcher at M-F 8:30 am to 6pm. Admit Date: 05/19/2017 10:13:00 PM Patient Name: Ishaan Currie Visit Number: [id number] Discharge Date: 05/26/17 ATTENTION: The Clinical Documentation Specialists (CDI) and [facility] Coding Staff appreciate your assistance in clarifying documentation. Please respond to the clarification below the line at the bottom and electronically sign. The CDI & [facility] Coding staff will review the response and follow-up if needed. Please note: Queries are made part of the Legal Health Record. If you have any questions, please contact the author of this message via ITS. Dr. Eben Stratton Mr. Currie presented with increasing pain, swelling and redness of the RLE. Per the 05/20 consultation diagnostic impression, patient who did have features of sepsis on presentation with a fever of 100.4, tachycardia and elevated white count of 18,000. Sepsis is listed as a diagnosis throughout other documents of this stay but is not carried through to the discharge summary. Further clarification regarding this diagnosis of sepsis is needed for proper reporting purposes. Please clarify: Sepsis, ruled in Sepsis, ruled out Other (please clarify) Clinically unable to determine Thank you so much for your time and assistance in this matter. MTDD
--- NOTE | 2017-07-05 13:18 | CDI ---
Documentation Clarification Form Date: 06/22/17 From: DONNELL Siddiqui Phone: If you have question, contact Obdulia Robertson, Pesticide Chemist at M-F 8:30 am to 6pm. Admit Date: 05/19/2017 10:13:00 PM Patient Name: Ishaan Currie Visit Number: [id number] Discharge Date: 05/26/17 ATTENTION: The Clinical Documentation Specialists (CDI) and [facility] Coding Staff appreciate your assistance in clarifying documentation. Please respond to the clarification below the line at the bottom and electronically sign. The CDI & [facility] Coding staff will review the response and follow-up if needed. Please note: Queries are made part of the Legal Health Record. If you have any questions, please contact the author of this message via ITS. Dr. Eben Stratton Mr. Currie presented with increasing pain, swelling and redness of the RLE. Per the 05/20 consultation diagnostic impression, patient who did have features of sepsis on presentation with a fever of 100.4, tachycardia and elevated white count of 18,000. Sepsis is listed as a diagnosis throughout other documents of this stay but is not carried through to the discharge summary. Further clarification regarding this diagnosis of sepsis is needed for proper reporting purposes. Please clarify: Sepsis, ruled in Sepsis, ruled out Other (please clarify) Clinically unable to determine Thank you so much for your time and assistance in this matter. MTDD
== END 2017-05-26 15:07 | disposition home or self-care (01) | DRG 854 ==
LOC: EC 18:20 → 4MS4W 22:13
PROVIDERS: ADMIT Family Medicine; ATTEND Family Medicine
PROC: 0MBN0ZZ Excision of Right Knee Bursa and Ligament, Open Approach (ICD-10-PCS; principal; 2017-05-19)
DX: A41.9 Sepsis, unspecified organism (principal); L03.115 Cellulitis of right lower limb; M71.161 Other infective bursitis, right knee; F17.210 Nicotine dependence, cigarettes, uncomplicated; E66.9 Obesity, unspecified; Z79.899 Other long term (current) drug therapy; Z68.32 Body mass index [BMI] 32.0-32.9, adult
CPT/HCPCS: 36415; 80048; 80053; 80202; 83605; 85025; 87040; 87070; 87075; 87205; 96365; 96366; 96368; 99285

== ENCOUNTER → 2017-05-19 | Outpatient (CLI) | payer BC ==
--- NOTE | 2017-05-19 20:33 | MR ---
EXAMINATION TYPE: MR knee RT wo con DATE OF EXAM: 05/19/2017 COMPARISON: NONE HISTORY: Rt knee pain x 8 mos, no trauma/surgery TECHNIQUE: Multiplanar, multisequence imaging of the right knee is performed without IV contrast. FINDINGS: The anterior and posterior cruciate ligaments are intact. Patella tendon is intact. There is a small knee joint effusion. The medial and lateral menisci appear normal. There is no evidence of meniscal t ear. The collateral ligaments are intact. There is extensive subcutaneous edema around the knee. Ther e is also a 5 x 1 cm elongated fluid collection in the subcutaneous tissues anterior to the tibial tu bercle. There is also adjacent 2 cm rounded fluid collection anterior to the proximal tibia that is i n the subcutaneous tissues more proximally. I see no fracture. There is no evidence of focal bone thaddeus truction. IMPRESSION: No evidence of meniscal or ligamentous tear. Mild knee joint effusion could relate to synovitis. Extensive subcutaneous edema around the knee with elongated fluid collection in the subcutaneous tiss ues anteriorly as above. This could relate to cellulitis and abscess. Clinical correlation is recomme nded. I would consider also chronic hematoma and seroma.
== END | disposition home or self-care (01) ==
LOC: RADMRIMAIN 17:36
PROVIDERS: ATTEND Orthopaedic Surgery
DX: M25.461 Effusion, right knee (principal)

== ENCOUNTER → 2017-10-03 | Outpatient (CLI) | payer BC ==
[2017-10-03 09:12] LABS: Basophils # (A) 0.1 k/uL (0-0.2); Basophils % (A) 1 %; Eosinophils # (A) 0.3 k/uL (0-0.7); Eosinophils % (A) 3 %; HCT 50.5 % (39.0-53.0); HGB 16.3 gm/dL (13.0-17.5); Lymphocytes # (A) 2.3 k/uL (1.0-4.8); Lymphocytes % (A) 21 %; MCH 29.7 pg (25.0-35.0); MCHC 32.3 g/dL (31.0-37.0); MCV 91.9 fL (80.0-100.0); Mean Platelet Volume 7.5; Monocytes # (A) 0.6 k/uL (0-1.0); Monocytes % (A) 6 %; Neutrophils # (A) 7.4 k/uL (1.3-7.7); Neutrophils % (A) 68 %; Platelet Count 215 k/uL (150-450); RBC 5.49 m/uL (4.30-5.90); RDW 13.6 % (11.5-15.5); WBC 10.9 k/uL (3.8-10.6)
[2017-10-03 12:34] LABS: Erythrocyte Sedimentation Rate 2 mm/hr (0-15)
== END | disposition home or self-care (01) ==
LOC: LABWHC1 08:47
PROVIDERS: ATTEND Family Medicine
DX: E78.5 Hyperlipidemia, unspecified (principal); D72.828 Other elevated white blood cell count; Z79.899 Other long term (current) drug therapy
CPT/HCPCS: 36415; 85025; 85652; 86140

== ENCOUNTER → 2018-01-23 | Outpatient (CLI) | payer BC ==
[2018-01-23 14:04] LABS: Potassium 4.1 mmol/L (3.5-5.1)
[2018-01-23 14:12] LABS: Basophils # (A) 0.1 k/uL (0-0.2); Basophils % (A) 1 %; Eosinophils # (A) 0.2 k/uL (0-0.7); Eosinophils % (A) 2 %; HCT 49.8 % (39.0-53.0); HGB 16.7 gm/dL (13.0-17.5); Lymphocytes % (A) 23 %; MCH 30.3 pg (25.0-35.0); MCHC 33.6 g/dL (31.0-37.0); MCV 90.4 fL (80.0-100.0); Mean Platelet Volume 8.5; Monocytes # (A) 0.6 k/uL (0-1.0); Monocytes % (A) 5 %; Neutrophils # (A) 8.9 k/uL (1.3-7.7); Neutrophils % (A) 68 %; Platelet Count 232 k/uL (150-450); RDW 13.4 % (11.5-15.5); WBC 13.1 k/uL (3.8-10.6)
== END ==
LOC: LABPAT 12:59
PROVIDERS: ATTEND Orthopaedic Surgery
DX: Z01.812 Encounter for preprocedural laboratory examination (principal); M70.41 Prepatellar bursitis, right knee
CPT/HCPCS: 36415; 80051; 85025

== ENCOUNTER 2018-02-02 09:57 | Day surgery (SDC) | payer BC ==
[2018-02-01 11:34] VITALS: BMI 34.0
--- NOTE | 2018-02-01 17:37 | HP ---
HISTORY AND PHYSICAL REASON FOR ADMISSION: Surgery is scheduled for 02/02/2018 HISTORY OF PRESENT ILLNESS: Ishaan Currie is a 47-year-old patient seen with symptomatic right knee patellar bursitis. We discussed options, decided to proceed with patellar bursectomy and debridement. Consent was obtained. PAST MEDICAL HISTORY: Noncontributory. PAST SURGICAL HISTORY: Incision, irrigation, debridement right knee prepatellar bursa. MEDICATIONS: Padilla medications none. ALLERGIES: None. SOCIAL HISTORY: Smokes 1 pack cigarettes daily. PHYSICAL EXAMINATION: Physical evaluation of the right knee reveals there is a previous well-healed incision. There is some swelling noted in the prepatellar bursal area. There is tenderness in that area. His range of motion is -6 to 130. Ligaments are stable. Hip rotation without pain. Distal neurovascular exam is intact. Right knee radiographs revealed no osseous abnormality. IMPRESSION: Right knee patellar bursitis. PLAN: Right knee patellar bursectomy. Surgery date scheduled for 02/02/2018. MMODL / IJN: [id number] /
[~2018-02-02 09:57] MED LIST: LACTATED RINGERS 1,000 ML IV SCH; LIDOCAINE 1% 20 ML VIAL (10MG/ML) FOR IV START INTRADERMA PRN; ceFAZolin IN SWFI 2 GM/20 ML SYRINGE IVP ONE
[2018-02-02 10:32] VITALS: TEMP 98
[2018-02-02] MEDS ORDERED: DEXAMETHASONE SOD PHOSPHATE 10 MG/ML 1 ML VIAL IV ONE (10:45)
[2018-02-02] MEDS ORDERED: ONDANSETRON 4 MG/2 ML VIAL IVP ONE (10:45)
[2018-02-02] MEDS ORDERED: MIDAZOLAM 2 MG/2 ML VIAL IV ONE (11:05)
[2018-02-02] MEDS ORDERED: PROPOFOL 10 MG/ML 20 ML VIAL IV ONE (11:10)
[2018-02-02] MEDS ORDERED: MIDAZOLAM 2 MG/2 ML VIAL ONE (11:10)
[2018-02-02] MEDS ORDERED: SUCCINYLCHOLINE CHLORIDE 100 MG/5 ML SYR IV ONE (11:10)
[2018-02-02] MEDS ORDERED: LIDOCAINE 1% INJ 10MG/ML (20 ML MDV) ONE (11:10)
[2018-02-02] MEDS ORDERED: fentaNYL (PF) 50 MCG/ML 2 ML AMP ONE (11:10)
[2018-02-02] MEDS ORDERED: BUPIVACAINE (PF) 0.25% 30 ML VIAL SQ ONE ×2 (11:28→12:01)
[2018-02-02] MEDS ORDERED: ceFAZolin 1,000 MG in SODIUM CHLORIDE 0.9% 1,000 ML IRRIGATION ONE (11:41)
[2018-02-02] MEDS ORDERED: LACTATED RINGERS 1,000 ML IV ONE (11:56)
--- NOTE | 2018-02-02 12:10 | P.OP ---
Date of Procedure: 02/02/18 Preoperative Diagnosis: Right knee symptomatic prepatellar bursitis Postoperative Diagnosis: Same Procedure(s) Performed: Right knee patellar bursectomy Anesthesia: NELIA, local Surgeon: Bennett Mcdaniels Occup Ther #1: Titi Acosta Estimated Blood Loss (ml): 5 Pathology: none sent Condition: stable Disposition: PACU Indications for Procedure: 47-year-old patient who was seen with persistent symptomatic right knee prepatellar bursitis. After having options regarding treatment discussed with him elected to proceed with bursectomy. Operative Findings: see description of procedure Description of Procedure: Patient was taken to the operative suite. Patient underwent a general anesthetic by the department of anesthesia. The patient received preoperative IV antibiotics. A well-padded tourniquet was placed proximal right thigh. The right lower extremity was now prepped and draped in the normal sterile orthopedic fashion. The extremity was elevated and tourniquet insufflated to 250. An incision was made over the previous cicatrix sharply through skin. We now dissected down to the prepatellar bursa. There was some areas of scarring and thickening of the bursa. A bursectomy was now performed. I explored the wound looking for any residual areas of abscesses patient previous a had a septic prepatellar bursitis with resultant surgery. After thorough exposure of the wound I could not appreciate any pockets of abscess and areas of residual infection. All abnormal bursal tissue had been successfully excised. The wound was irrigated with antibiotics and solution. Subcu soft tissues were approximated with 2-0 Vicryl. The skin was approximated with 2-0 nylon. The area was infiltrated local analgesic. Sterile dressings were applied. The tourniquet was released with immediate capillary refill the entire extremity noted. Sterile web roll Hardy bandage were applied. The patient was awakened, transferred to a bed and recovery stable condition. Cuong KING assisted with the procedure.
[2018-02-02 12:21] VITALS: RESP 16
[2018-02-02] MEDS: HYDROmorphone 0.5 MG/0.5 ML SYRINGE IVP PRN ×2 (12:26→12:35)
[2018-02-02] MEDS ORDERED: KETOROLAC 30 MG/ML 1 ML VIAL IVP ONE (12:28)
[2018-02-02 13:36] VITALS: BP 120/85; PULSE 86
== END 2018-02-02 14:08 | disposition home or self-care (01) ==
LOC: OR 09:57
PROVIDERS: ATTEND Orthopaedic Surgery
DX: M70.41 Prepatellar bursitis, right knee (principal); F17.210 Nicotine dependence, cigarettes, uncomplicated; E78.5 Hyperlipidemia, unspecified; Z79.1 Long term (current) use of non-steroidal anti-inflammatories (NSAID); Z79.899 Other long term (current) drug therapy
CPT/HCPCS: 27340; J2250; J1100; J2405; J0690 ×2; J2001; J3010; J1885; J0330; J2704; J1170

== ENCOUNTER 2018-06-11 09:39 | Emergency (ER) | payer BC ==
[2018-06-11 09:44] VITALS: BP 143/85; PULSE 89; RESP 18; TEMP 98.1
[2018-06-11] MEDS ORDERED: LIDOCAINE 1% INJ 10MG/ML (20 ML MDV) SQ ONE (09:53)
[2018-06-11] MEDS ORDERED: DIPH,PERTUS(ACELL)TETVAC-LF 0.5 ML VIAL IM ONE (09:55)
--- NOTE | 2018-06-11 09:56 | ED ---
Wound/Laceration HPI - General Chief Complaint: Wound/Laceration Stated Complaint: rt index finger lac Time Seen by Provider: 06/11/18 09:46 Source: patient, RN notes reviewed Mode of arrival: ambulatory Limitations: no limitations - History of Present Illness Initial Comments: 47-year-old male presents emergency Department chief complaint laceration to his right hand index finger. Patient states reaction to his toolbox states that there was razor blade. Patient states he cut his index finger. He states that bleeding has subsided. Patient states that he was just cannot up with his made him come emergency department. Patient has no paresthesias no decreased range of motion. Patient unsure when his last tetanus was. - Related Data Home Medications Medication Instructions Recorded Confirmed Atorvastatin Calcium [Lipitor] 20 mg PO DAILY 02/01/18 02/01/18 Meloxicam [Mobic] 7.5 mg PO BID 02/01/18 02/01/18 Previous Rx's Medication Instructions Recorded traMADol HCl [Ultram] 50 mg PO Q6H PRN #12 tab 02/02/18 Allergies Allergy/AdvReac Type Severity Reaction Status Date / Time No Known Allergies Allergy Verified 06/11/18 09:44 Review of Systems ROS Statement: Those systems with pertinent positive or pertinent negative responses have been documented in the HPI. ROS Other: All systems not noted in ROS Statement are negative. Past Medical History Past Medical History: No Reported History Additional Past Medical History / Comment(s): Broken fifth metacarpal, no surgery, bursitis to right knee since April 2017. History of Any Multi-Drug Resistant Organisms: None Reported Past Surgical History: No Surgical Hx Reported Past Anesthesia/Blood Transfusion Reactions: No Reported Reaction Past Psychological History: No Psychological Hx Reported Smoking Status: Current every day smoker General Exam Limitations: no limitations General appearance: alert, in no apparent distress Respiratory exam: Present: normal lung sounds bilaterally. Absent: respiratory distress, wheezes, rales, rhonchi, stridor Cardiovascular Exam: Present: regular rate, normal rhythm, normal heart sounds. Absent: systolic murmur, diastolic murmur, rubs, gallop, clicks Extremities exam: Present: other (Right hand index finger is a 1 cm laceration t o the distal tip no active bleeding for range of motion Reflux 2 seconds) Course Vital Signs 06/11/18 09:43 Temperature 98.1 F Pulse Rate 89 Respiratory 18 Rate Blood Pressure 143/85 O2 Sat by Pulse 97 Oximetry Procedures - Laceration Laceration #1 Consent Obtained: verbal consent Indication: laceration Site: hand Size (cm): 1 Description: linear Depth: simple, single layer Anesthetic Used: lidocaine 1%, without epi Anesthesia Technique: local infiltration Amount (mls): 3 Pre-repair: wound explored, irrigated extensively, deep structures intact Type of Sutures: nylon Size of Sutures: 4-0 Number of Sutures: 3 Technique: simple, interrupted Patient Tolerated Procedure: well, no complications Medical Decision Making - Medical Decision Making 47-year-old male presented for finger laceration. This was closed using sutures. Patient tolerated well, tetanus is updated wound care instructions given return parameters were given. Disposition Clinical Impression: Finger laceration Disposition: HOME SELF-CARE Condition: Stable Instructions (If sedation given, give patient instructions): Care For Your Stitches (ED), Finger Laceration (ED) Additional Instructions: Please return to the Emergency Department if symptoms worsen or any other concerns. Return in 7-10 days for suture removal. Is patient prescribed a controlled substance at d/c from ED?: No Referrals: Angel Boston MD [Primary Care Provider] - 1-2 days
== END 2018-06-11 10:44 | disposition home or self-care (01) ==
LOC: EC 09:39
DX: S61.210A Laceration without foreign body of right index finger without damage to nail, initial encounter (principal); F17.200 Nicotine dependence, unspecified, uncomplicated; Z23 Encounter for immunization; Z79.1 Long term (current) use of non-steroidal anti-inflammatories (NSAID); Z79.899 Other long term (current) drug therapy; W26.8XXA Contact with other sharp object(s), not elsewhere classified, initial encounter
CPT/HCPCS: 90715; 99282; 12001; 90471; J2001

== ENCOUNTER → 2018-07-25 | Outpatient (CLI) | payer BC ==
--- NOTE | 2018-07-25 23:33 | CONS ---
CONSULTATION REASON FOR CONSULTATION: Hypersomnia. This is a 48-year-old male patient coming in with loud snoring, witnessed apneas and excessive daytime sleepiness. 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 He feels very fatigued and tired and sleepy during the day. During recent knee surgery the patient was found to have significant apneas and desaturations postoperatively, and he was advised to undergo a sleep apnea evaluation. He has gained about 30 pounds over the past one year. He has hyperlipidemia and hypotestosteronism and he is on treatment for both. He goes to bed somewhere between 10 and 11 p.m. and wakes up at 6:30 a.m. in the morning. No anxiety. No depression. No mental health issues. No sleep paralysis. No hallucinations. No cataplexy. PAST MEDICAL HISTORY: 1. Osteoarthritis. 2. Hyperlipidemia. 3. Hypotestosteronism. PAST SURGICAL HISTORY: Past surgical history includes knee surgery. DRUG ALLERGIES: NOT KNOWN. OUTPATIENT MEDICATION LIST: Outpatient medications list includes: 1. Meloxicam. 2. Testosterone shots. 3. He is also on a cholesterol pill. The exact medication is not known. SOCIAL HISTORY: He smokes one pack of cigarettes a day. No history of alcoholism. No history of IV drugs. FAMILY HISTORY: Negative for sleep apnea. REVIEW OF SYSTEMS: Fourteen-point review of systems was done. Positive findings are all mentioned above in the history of present illness. PHYSICAL EXAMINATION: CURRENT VITALS: BP is 147/86, pulse 100, respirations 16, temperature 98.3, saturation 96% on room air. Height is 5 feet 10 inches, weight is 232. Neck size 17-1/2 inches. GENERAL APPEARANCE: Calm, comfortable. HEAD: Atraumatic, normocephalic. NECK: Supple. There is no JVD. No goiter or neck masses. LUNGS: Clear to auscultation. HEART: Heart sounds are regular rate and rhythm. Normal S1, S2. No S3, S4. No murmurs. ABDOMEN: Soft, nontender. No organomegaly. EXTREMITIES: No edema. No cyanosis or clubbing. NEUROLOGIC: Alert and oriented x3. No focal neurological deficit. PSYCHIATRIC: Negative for anxiety or depression. IMPRESSION: 1. Hypersomnia. Madison score of 13. High suspicion for obstructive sleep apnea. 2. Loud snoring. 3. Witnessed apneas. 4. Hyperlipidemia. 5. Hypotestosteronism. PLAN: Due to high clinical suspicion, we will proceed with a home sleep study to confirm diagnosis and proceed to the treatment accordingly. Encourage weight loss. Do not drive, especially when feeling drowsy or sleepy. Further recommendations to follow based on the results of the home sleep study. ALLYN / IJN: [id number] /
== END | disposition home or self-care (01) ==
LOC: SLEEP 16:27
PROVIDERS: ATTEND Internal Medicine Critical Care Medicine
DX: G47.10 Hypersomnia, unspecified (principal); R06.83 Snoring; R06.81 Apnea, not elsewhere classified; E29.1 Testicular hypofunction
CPT/HCPCS: 99211

== ENCOUNTER → 2019-03-27 | Outpatient (CLI) | payer BC ==
[2019-03-27 09:28] LABS: Basophils # (A) 0.1 k/uL (0-0.2); Basophils % (A) 1 %; Eosinophils # (A) 0.2 k/uL (0-0.7); Eosinophils % (A) 2 %; HGB 17.2 gm/dL (13.0-17.5); Lymphocytes # (A) 2.5 k/uL (1.0-4.8); Lymphocytes % (A) 25 %; MCH 30.2 pg (25.0-35.0); MCV 91.4 fL (80.0-100.0); Mean Platelet Volume 8.8; Monocytes # (A) 0.4 k/uL (0-1.0); Monocytes % (A) 4 %; Neutrophils # (A) 6.7 k/uL (1.3-7.7); Neutrophils % (A) 65 %; Platelet Count 218 k/uL (150-450); RBC 5.69 m/uL (4.30-5.90); RDW 12.5 % (11.5-15.5); WBC 10.2 k/uL (3.8-10.6)
[2019-03-27 16:34] LABS: ALT 65 U/L (10-49); AST 31 U/L (14-35); African American GFR (CKD) 102.7 (60.0-200.0); Albumin/Globulin Ratio 2.29 (1.60-3.17); Alkaline Phosphatase 107 U/L (41-126); Bilirubin, Conjugated <0.20 mg/dL (0.20-0.40); Calcium 9.7 mg/dL (8.7-10.3); Chloride 106 mmol/L (96-109); Globulin 2.1 g/dL (1.6-3.3); Glucose 187 mg/dL (70-110); Non-African American GFR(CKD) 88.6 (60.0-200.0); Potassium 4.7 mmol/L (3.5-5.5); Sodium 138 mmol/L (135-145); Total Bilirubin 0.4 mg/dL (0.2-1.2); Total Protein 6.9 g/dL (6.2-8.2)
== END | disposition home or self-care (01) ==
LOC: LABWHC1 08:59
PROVIDERS: ATTEND Family Medicine
DX: R53.83 Other fatigue (principal); I10 Essential (primary) hypertension
CPT/HCPCS: 36415; 80053; 82248; 84443; 85025

== ENCOUNTER → 2019-04-04 | Outpatient (CLI) | payer BC | END | disposition home or self-care (01) | LOC: LABWHC1 16:21 | PROVIDERS: ATTEND Family Medicine | DX: R07.9 Chest pain, unspecified (principal) | CPT/HCPCS: 36415; 93005 ==

== ENCOUNTER → 2019-04-10 | Outpatient (CLI) | payer BC ==
[~2019-04-10] MED LIST changes: +DOBUTamine DRIP for NUC MED 500 MG in DEXTROSE/WATER 1 250ML.BAG IV ONE; -LACTATED RINGERS 1,000 ML IV SCH; -LIDOCAINE 1% 20 ML VIAL (10MG/ML) FOR IV START INTRADERMA PRN; -ceFAZolin IN SWFI 2 GM/20 ML SYRINGE IVP ONE
--- NOTE | 2019-04-11 11:21 | ECHOS ---
STRESS ECHOCARDIOGRAM INDICATIONS: Chest pain. MEDICATIONS: BASELINE HEART RATE: 78 BASELINE BLOOD PRESSURE: 144/82 MAXIMUM HEART RATE: 154 MAXIMUM BLOOD PRESSURE: 160/73 85% MPHR: 146 100% MPHR: 172 METS: MAXIMUM STAGE REACHED: TOTAL EXERCISE TIME: CLINICAL INFORMATION: Dobutamine stress echocardiographic study was performed. Peak heart rate of 154 was achieved. Maximum blood pressure of 160/73 mmHg was noted. Resting EKG shows normal sinus rhythm with normal NH interval and QRS duration and normal ST-T waves. No ST- segment depression suggestive of ischemia was noted. The baseline echocardiographic images reveal normal left ventricular chamber size with normal left ventricular systolic function. At the peak dose of dobutamine infusion, normal increase in the wall thickness and contractility is noted. FINAL IMPRESSION: This dobutamine stress echocardiographic study is negative for stress-induced ischemia. EKG portion of the stress test is not suggestive of ischemia. ALLYN / TEODORAN: [id number] /
== END | disposition home or self-care (01) ==
LOC: RADNMMAIN 09:53
PROVIDERS: ATTEND Family Medicine
DX: R53.83 Other fatigue (principal); R03.0 Elevated blood-pressure reading, without diagnosis of hypertension
CPT/HCPCS: 93351; J1250

== ENCOUNTER → 2019-08-17 | Outpatient (CLI) | payer BC ==
--- NOTE | 2019-08-17 18:53 | MR ---
EXAMINATION TYPE: MR knee RT wo con DATE OF EXAM: 08/17/2019 COMPARISON: Plain film 05/02/2019, prior knee MRI 05/19/2017 HISTORY: Right Knee Pain and swelling. Hx of 2 prior surgeries on the knee. TECHNIQUE: Multiplanar, multisequence imaging of the knee is performed without IV contrast. FINDINGS: MEDIAL MENISCUS: Anterior and posterior horns are intact without tear, stable. LATERAL MENISCUS: Anterior and posterior horns are intact without tear. CRUCIATE LIGAMENTS: The anterior and posterior cruciate ligaments are intact and unremarkable. COLLATERAL LIGAMENTS: The medial collateral ligament and lateral collateral ligament complex are inta ct and unremarkable. EXTENSOR MECHANISM: Visualized quadriceps and patellar tendons are intact. EFFUSION: Minimal joint effusion. POPLITEAL CYST: No popliteal/gamboa cyst. TRICOMPARTMENT SPACES: Maintained CARTILAGE: Stable in appearance, no significant chondromalacia BONE MARROW SIGNAL: Focus of T2 intensity within the posterior proximal tibia lateral aspect has incr eased in size slightly in the interval, there may be small geode which is grown in the interval and n ow measures only 6 to 7 mm. OTHER: There is interval improvement in the diffuse subcutaneous signal changes seen on prior exam. S ome signal drop anteriorly within the subcutaneous soft tissues at the level of the patellar tendon i s likely postoperative. There is mild subcutaneous edema change. IMPRESSION: Interval improvement in subcutaneous signal changes, there is minimal joint effusion. No evident inte rnal derangement.
== END | disposition home or self-care (01) ==
LOC: RADMRIMAIN 17:10
PROVIDERS: ATTEND Orthopaedic Surgery
DX: M25.561 Pain in right knee (principal)

== ENCOUNTER 2021-03-12 11:58 | Day surgery (SDC) | payer BC ==
[2021-03-09 13:12] VITALS: BMI 34.0
--- NOTE | 2021-03-11 15:25 | HP ---
HISTORY AND PHYSICAL DATE OF SURGERY: 03/12/2021 Ishaan Currie is a 50-year-old patient seen with symptomatic left knee prepatellar bursitis. Options were discussed with him. He elected to proceed with left knee bursectomy. Consent regarding the procedure was obtained. PAST MEDICAL HISTORY: Noncontributory. PAST SURGICAL HISTORY: Noncontributory. DAILY MEDICATIONS: None. ALLERGIES: NONE. SOCIAL HISTORY: He smokes cigarettes. PHYSICAL EVALUATION OF LEFT KNEE: There is an area of prepatellar swelling with some tenderness. There is no evidence for erythema or infective process. He has full range of motion of the knee. He does have a medial Emerson's sign. His ligaments are stable. Distal neurovascular exam intact. Left knee radiographs reveal some mild osteoarthritis. IMPRESSION: Left knee prepatellar bursitis. PLAN: Left knee patellar bursectomy. MMODL / IJN: [id number] /
[~2021-03-12 11:58] MED LIST changes: +DEXAMETHASONE SOD PHOSPHATE 4 MG/ML 1 ML VIAL IV ONE; -DOBUTamine DRIP for NUC MED 500 MG in DEXTROSE/WATER 1 250ML.BAG IV ONE; +LACTATED RINGERS 1,000 ML IV SCH; +ONDANSETRON 4 MG/2 ML VIAL IVP ONE
[2021-03-12] MEDS ORDERED: DEXAMETHASONE SOD PHOSPHATE 4 MG/ML 1 ML VIAL IV ONE (12:30)
[2021-03-12 12:51] LABS: Glucose,Whole Blood 140 mg/dL (75-99)
[2021-03-12] MEDS ORDERED: ONDANSETRON 4 MG/2 ML VIAL ONE (12:52)
[2021-03-12] MEDS ORDERED: SUCCINYLCHOLINE CHLORIDE VIAL 200 MG/10 ML VIAL IV ONE (14:02)
[2021-03-12] MEDS ORDERED: PHENYLEPHRINE-0.9% NACL SYG 1,000 MCG/10 ML SYRINGE ONE (14:02)
[2021-03-12] MEDS ORDERED: PROPOFOL 10 MG/ML 20 ML VIAL IV ONE (14:02)
[2021-03-12] MEDS ORDERED: MIDAZOLAM 2 MG/2 ML VIAL ONE (14:02)
[2021-03-12] MEDS ORDERED: KETOROLAC 15 MG/ML 1 ML VIAL ONE (14:02)
[2021-03-12] MEDS ORDERED: LIDOCAINE 1% INJ 10MG/ML (20 ML MDV) ONE (14:02)
[2021-03-12] MEDS ORDERED: HYDROmorphone (PF) 1 MG/ML ONE (14:02)
[2021-03-12] MEDS ORDERED: fentaNYL (PF) 50 MCG/ML 2 ML AMP ONE (14:02)
--- NOTE | 2021-03-12 14:47 | P.OP ---
Date of Procedure: 03/12/21 Preoperative Diagnosis: Left knee patellar bursitis Postoperative Diagnosis: Same Procedure(s) Performed: Left knee patellar bursectomy Anesthesia: NELIA Surgeon: Bennett Mcdaniels Safety Counselor #1: Titi Acosta Estimated Blood Loss (ml): 10 Pathology: none sent Condition: stable Disposition: PACU Indications for Procedure: 50-year-old patient seen with symptomatic left knee patellar bursitis. After treatment options were discussed, he elected to proceed with bursectomy. Operative Findings: See description of procedure Description of Procedure: Patient is taken to the operative suite. Patient received preoperative IV antibiotics. Patient underwent a general anesthetic by the department of anesthesia. Well-padded tourniquet placed proximal left lower extremity. Left lower extremity prepped and draped in the normal sterile orthopedic fashion. The extremity was elevated and tourniquet insufflated to 300. I made a midline incision along the left knee. I didn't encounter what appeared to be some possible purulent drainage distally. Cultures were obtained. I now with the assistance of Cuong KING retracting the soft tissues performed a thorough patellar bursectomy. The patellar tendon was visualized and was intact. The wound was copiously irrigated with saline solution. The subcu soft tissues were approximated with 2-0 Vicryl. The skin margins were approximated with skin eloy. I applied sterile dressings. The tourniquet was released with immediate capillary refill noted. The patient was awakened and transferred to recovery in stable condition.
[2021-03-12 15:09] VITALS: TEMP 96.8
[2021-03-12 15:16] LABS: Glucose,Whole Blood 146 mg/dL (75-99)
[2021-03-12 15:51] VITALS: RESP 16
[2021-03-12] MEDS ORDERED: HYDROcodone/APAP 5-325MG 1 EACH TAB PO ONE (16:00)
[2021-03-12] MEDS ORDERED: HYDROcodone/APAP 5-325MG 1 EACH TAB ONE (16:01)
[2021-03-12 16:52] VITALS: BP 104/70; PULSE 79
== END 2021-03-12 16:54 | disposition home or self-care (01) ==
LOC: OR 11:58
PROVIDERS: ATTEND Orthopaedic Surgery
DX: M70.42 Prepatellar bursitis, left knee (principal); F17.210 Nicotine dependence, cigarettes, uncomplicated; Z98.890 Other specified postprocedural states; Z79.84 Long term (current) use of oral hypoglycemic drugs
CPT/HCPCS: 27340; 87070; 87205; 87075; J2250; J0330; J1100; J0690; J2405; J2001; J3010; J1170; J1885; J2370; J2704

== ENCOUNTER 2021-07-08 06:16 | Day surgery (SDC) | payer BC ==
[2021-07-07 09:37] VITALS: BMI 34.7
[~2021-07-08 06:16] MED LIST changes: +ACETAMINOPHEN TAB 500 MG TAB PO PRN; -DEXAMETHASONE SOD PHOSPHATE 4 MG/ML 1 ML VIAL IV ONE; +HEPARIN SODIUM,PORCINE/PF 5,000 UNIT/0.5 ML SYRINGE SQ PRN; -LACTATED RINGERS 1,000 ML IV SCH; -ONDANSETRON 4 MG/2 ML VIAL IVP ONE
[2021-07-08] MEDS ORDERED: LIDOCAINE 1% (10MG/ML) FOR IV START INTRADERMA PRN (06:31)
[2021-07-08] MEDS ORDERED: ONDANSETRON 4 MG/2 ML VIAL IVP ONE (06:31)
[2021-07-08] MEDS ORDERED: SCOPOLAMINE 1 MG/72 HR PATCH TRANSDERM ONE (06:31)
[2021-07-08] MEDS ORDERED: LACTATED RINGERS 1,000 ML IV SCH (06:31)
[2021-07-08] MEDS ORDERED: DEXAMETHASONE SOD PHOSPHATE 4 MG/ML 1 ML VIAL IV ONE (06:31)
[2021-07-08] MEDS ORDERED: HYDROmorphone 0.5 MG/0.5 ML SYRINGE IVP PRN (07:00)
[2021-07-08 07:27] LABS: Glucose,Whole Blood 235 mg/dL (75-99)
[2021-07-08] MEDS ORDERED: INSULIN ASPART (NovoLOG) 100 UNIT/ML VIAL SQ ONE (07:45)
[2021-07-08] MEDS ORDERED: ROCURONIUM 10 MG/ML (5 ML VIAL) IV ONE (07:53)
[2021-07-08] MEDS ORDERED: NEOSTIGMINE 1 MG/ML 10 ML VIAL ONE (07:53)
[2021-07-08] MEDS ORDERED: MIDAZOLAM 2 MG/2 ML VIAL ONE (07:53)
[2021-07-08] MEDS ORDERED: PROPOFOL 10 MG/ML 20 ML VIAL IV ONE (07:53)
[2021-07-08] MEDS ORDERED: HYDROmorphone (PF) 1 MG/ML ONE (07:53)
[2021-07-08] MEDS ORDERED: GLYCOPYRROLATE 0.2 MG/ML 2 ML VIAL ONE (07:53)
[2021-07-08] MEDS ORDERED: LIDOCAINE 2% INJ 20 MG/ML (2 ML VIAL) ONE (07:53)
[2021-07-08] MEDS ORDERED: KETOROLAC 15 MG/ML 1 ML VIAL ONE (07:53)
[2021-07-08] MEDS ORDERED: SUCCINYLCHOLINE CHLORIDE VIAL 200 MG/10 ML VIAL IV ONE (07:53)
[2021-07-08] MEDS ORDERED: KETAMINE 10 MG/ML 20 ML VIAL ONE (07:53)
[2021-07-08] MEDS ORDERED: fentaNYL (PF) 50 MCG/ML 2 ML AMP ONE (07:53)
[2021-07-08] MEDS ORDERED: PHENYLEPHRINE-0.9% NACL SYG 1,000 MCG/10 ML SYRINGE ONE (07:53)
[2021-07-08] MEDS ORDERED: BUPIVACAIN-EPI 0.25%-1:200,000 30 ML VIAL SQ ONE (08:27)
[2021-07-08 09:03] LABS: Glucose,Whole Blood 212 mg/dL (75-99)
[2021-07-08 09:15] VITALS: TEMP 96.9
--- NOTE | 2021-07-08 09:28 | P.GSHP ---
History of Present Illness H&P Date: 07/08/21 Chief Complaint: Umbilical hernia Is a 50-year-old male who presents today for umbilical hernia repair. Patient's echo with umbilical pain. Patient will undergo laparoscopic robotic-assisted umbilical hernia repair. Past Medical History Past Medical History: Diabetes Mellitus, Hyperlipidemia Additional Past Medical History / Comment(s): bursitis jenni knees , no rx for cholesterol, History of Any Multi-Drug Resistant Organisms: None Reported Past Surgical History: Orthopedic Surgery, Tonsillectomy Additional Past Surgical History / Comment(s): jenni knee arthroscopy Past Anesthesia/Blood Transfusion Reactions: No Reported Reaction Smoking Status: Current every day smoker - Past Family History Mother Family Medical History: No Reported History Medications and Allergies Home Medications Medication Instructions Recorded Confirmed Type Meloxicam(Dose Unknown) 1 tab PO BID 07/07/21 07/08/21 History metFORMIN HCL [Glucophage] 500 mg PO BID 07/07/21 07/08/21 History Acetaminophen Tab [Tylenol] 650 mg PO Q6H #30 tab 07/08/21 Rx Docusate [Colace] 100 mg PO BID #20 capsule 07/08/21 Rx Ibuprofen [Motrin] 600 mg PO Q6HR PRN #40 tab 07/08/21 Rx oxyCODONE HCL [OxyIR] 5 mg PO Q6H PRN 3 Days #10 tab 07/08/21 Rx Allergies Allergy/AdvReac Type Severity Reaction Status Date / Time No Known Allergies Allergy Verified 07/08/21 06:52 Surgical - Exam Vital Signs Temp Pulse Resp BP Pulse Ox 97.8 F 83 18 126/79 97 07/08/21 07:03 07/08/21 07:03 07/08/21 07:03 07/08/21 07:03 07/08/21 07:03 - General well developed, well nourished, no distress - Eyes PERRL - ENT normal pinna - Neck no masses - Respiratory normal expansion - Cardiovascular Rhythm: regular - Abdomen Abdomen: soft, non tender Hernia: umbilical Results - Labs Abnormal Lab Results - Last 24 Hours (Table) 07/08/21 07/08/21 Range/Units 07:25 09:01 POC Glucose (mg/dL) 235 H 212 H (75-99) mg/dL Assessment and Plan Assessment: Umbilical hernia. We'll perform laparoscopic robotic assistance repair.
--- NOTE | 2021-07-08 09:30 | P.OP ---
Date of Procedure: 07/08/21 Preoperative Diagnosis: Umbilical hernia Postoperative Diagnosis: Umbilical hernia Procedure(s) Performed: Laparoscopic robotic system repair of umbilical hernia Partial omentectomy Transversus abdominis plain block Anesthesia: NELIA Surgeon: Braulio Chaney Pathology: other (Hernia sac/omentum) Condition: stable Disposition: PACU Description of Procedure: The patient was placed on the operating table in the supine position. He received general anesthesia. His abdomen was prepped and draped usual fashion. Using a 5 mm optical trocar under direct visualization the peritoneal cavity was entered in the left upper quadrant. The abdomen was then insufflated. The laparoscope was placed back into the perineal cavity. Next a 8 mm robotic trocar was placed in the left lower quadrant and a 12 mm robotic trocar was placed in the left lateral position. The original 5 mm trocar was exchanged for a 8 mm robotic trocar. The patient's placed in the left side up position. And the patient was docked the robot. A transversus abdominis plane block was performed in 4 quadrants using 1% local Xylocaine. The umbilical hernia was visualized. Using hook cautery the peritoneum over the umbilical hernia was excised. The incarcerated omentum and hernia sac were dissected free and sent to pathology. The fascial opening was repaired using 0V LOC suture. Next a piece of 11 cm round ventral light ST mesh was placed into the. Cavity and secured with 2 OV lock suture. The patient was undocked the robot. The needles were retrieved. The fascia of the 12 mm trocar site was closed with 0 Ethibond suture. Skin was closed interrupted 3-0 Monocryl suture. Dermabond dressings was applied. Patient top procedure well and was sent to recovery room stable condition.
[2021-07-08] MEDS ORDERED: LACTATED RINGERS 1,000 ML IV ONE ×2 (09:40)
[2021-07-08 09:43] VITALS: RESP 16
[2021-07-08 10:36] VITALS: BP 134/81; PULSE 97
[2021-07-08 11:13] LABS: Glucose,Whole Blood 250 mg/dL (75-99)
== END 2021-07-08 11:25 | disposition home or self-care (01) ==
LOC: OR 06:16
PROVIDERS: ATTEND Surgery
DX: K42.9 Umbilical hernia without obstruction or gangrene (principal); E11.9 Type 2 diabetes mellitus without complications; E78.5 Hyperlipidemia, unspecified; Z98.890 Other specified postprocedural states; F17.210 Nicotine dependence, cigarettes, uncomplicated; Z79.84 Long term (current) use of oral hypoglycemic drugs; Z79.1 Long term (current) use of non-steroidal anti-inflammatories (NSAID); Z79.899 Other long term (current) drug therapy
CPT/HCPCS: 49652; S2900; 86850; 86900; 86901; 88302

== ENCOUNTER → 2024-06-12 | Outpatient (CLI) | payer OTHER ==
--- NOTE | 2024-06-12 12:04 | MR ---
EXAMINATION TYPE: MR shoulder LT wo con DATE OF EXAM: 06/12/2024 10:47 AM COMPARISON: Radiograph left shoulder 06/06/2024 CLINICAL INDICATION: Male, 53 years old with history of M25.512 PAIN IN LEFT SHOULDER, Left shoulder pain, decreased ROM x 1 year. TECHNIQUE: Multiplanar, multisequence imaging of the shoulder is performed without contrast. FINDINGS: There is intrinsic signal within the intracapsular portion of the long head biceps tendon. The extrac apsular portion remains appropriately situated along the bicipital groove. Mild heterogeneity of the subscapularis tendon which otherwise remains intact. Moderate degenerative change at the acromioclavicular joint with joint space narrowing, subchondral m arrow signal change, and marginal spurring. Inferior spurring extends into the subacromial space with out significant mass effect on the underlying cuff. Mild effusion within the subacromial/subdeltoid bursa. There is a focal thickness tear of the anterior to mid supraspinatus tendon measuring 1.9 cm long and 1.2 cm AP. Contiguous deep articular sided tear of the mid to posterior supraspinatus tendon along t he top of the humeral head measuring 1.4 cm long and approximately 1.0 cm AP. Scattered intrasubstance change infraspinatus tendon without discrete tear. There is mild fatty atrophy of the teres minor muscle belly with edematous change. There is small amount of irregular signal in the superior labrum but without any apparent labral cyst . Suspect a subtle labral foramen along the anterior superior quadrant. Physiologic glenohumeral join t fluid. Mild diffuse thinning of superior humeral head articular cartilage. No Hill-Sachs deformity or os acromiale. Patchy red marrow hyperplasia can be seen with anemia, obesity, smoking, chronic disease. IMPRESSION: 1. Diffuse rotator cuff tendinosis. Full-thickness tear of the anterior to mid supraspinatus tendon m easuring 1.9 x 1.2 cm. There is a contiguous deep articular sided tear of the mid to posterior supras pinatus tendon located more proximally along the top of the humeral head (tear measuring 1.4 x 1.0 cm ). 2. Moderate AC joint delay with inferior spurring slightly encroaching on the subacromial space but w ithout marquise mass effect onto the underlying cuff. 3. Suspect interstitial tear involving the intracapsular portion of the long head biceps tendon and a small SLAP tear. 4. Isolated edema and fatty atrophy of the teres minor. Findings could be idiopathic or could reflect quadrilateral space syndrome. [facility], Workstation: [facility] [place], 06/12/2024 12:01 PM
== END | disposition home or self-care (01) ==
LOC: RADMRIMAIN 10:11
PROVIDERS: ATTEND Orthopaedic Surgery
DX: M75.122 Complete rotator cuff tear or rupture of left shoulder, not specified as traumatic (principal); R60.0 Localized edema